=== PATIENT | female | born 1970 ===

== ENCOUNTER 2023-09-08 06:28 | Emergency (ER) | payer OTHER, SELFPAY ==
[2023-09-08 06:32] VITALS: BP 151/96
[2023-09-08] MEDS: BENADRYL 25 MG IV (07:10)
[2023-09-08] MEDS: TORADOL 15 MG IV (07:11)
--- NOTE | 2023-09-08 08:36 | ED.GENMED ---
History of Present Illness
General
Chief Complaint: Headache
Source: patient, records and spouse
Exam Limitations: none
Time Seen by Provider: 09/08/23 06:50
Nursing documentation reviewed up to this point in time: agreed with
Travel History
Have you had any contact with someone who has COVID-19?: No
Do you have any symptoms of coronavirus? Fever > 100 degrees, chills, cough, shortness of breath, sore throat, loss of taste or smell, muscle aches, or headache?: No
History of Present Illness
History of Present Illness:
Patient is a 53-year-old female presents to the emergency department with gaze and head turning to the left after having an onset of migraine while at work earlier. Patient had taken the Compazine yesterday approximately 24 hours ago. Patient has
had this happen before. Patient admits to nausea but denies headache or neck pain. Patient denies any recent illnesses or injuries. Patient denies visual or speech difficulties. Patient denies any focal weakness or ataxia.
Past History
Past History
ED Past Medical History: Other (Migraines)
ED Past Surgical History: Orthopedic
Social History
Tobacco: Non-smoker
Review of Systems
Review of Systems
All Other Systems: Not applicable
Phy Exam
Physical Exam
Physical Exam:
Physical Exam
General: mild to moderate distress, alert and appropriate, well nourished, well hydrated
HENT: Normocephalic, supple with no lymphadenopathy, no thyromegaly. Head and gaze deviated to the left
Eyes: Clear sclera, conjuctiva without injection
Heart: Regular rhythm and rate. No S3, S4. No murmur. No NVD, bruit
Lungs: No respiratory distress, no stridor, lung sounds clear and equal bilaterally
Abdomen: Soft, nontender, no organomegaly, no CVA tenderness, BS good
Neuro: Alert and oriented x 3, CN II - XII intact, no motor focality, no cerebellar dysfunction
Skin: no rash
Psychiatric: well kept. interactive and cooperative
Extremities: No edema, cyanosis, tenderness, Good and equal peripheral pulses.
Scores
Heart Failure Risk
Heart Failure Risk Score: Not Applicable
Heart Score for Chest Pain Patients
STEMI patient?: Not applicable
Withdrawal Assessment of Alcohol
Withdrawal Assessment Completed?: Not applicable
Course
Orders/Labs/Results
Orders:
Orders
09/08/23 06:56
Diphenhydramine [Benadryl] 25 mg IV NOW STA
Ketorolac [Toradol] 15 mg IV NOW STA
09/08/23 07:28
Benztropine Mesylate [Cogentin] 1 mg IM NOW STA
Vital Signs
Initial and Last Documented VS:
Initial Vital Signs
Temp Pulse Resp BP Pulse Ox
98.2 F 104 16 151/96 100
09/08/23 06:32 09/08/23 06:32 09/08/23 06:32 09/08/23 06:32 09/08/23 06:32
Last Documented Vital Signs
Temp Pulse Resp BP Pulse Ox
98.2 F 104 16 151/96 100
09/08/23 06:32 09/08/23 06:32 09/08/23 06:32 09/08/23 06:32 09/08/23 06:32
*Radiology
Radiology exam reviewed: other (na)
*Pulse Oximetry
Patient hypoxic: no
*EKG
Interpreted by ED Provider?: NA
*Director Imaging Interpretation
Rate: Director Imaging- N/A
*Critical Care Note
Total Time (30-74mins, 75-104mins- exclusive of procedures): Not Applicable
Update Note
Update Note:
Patient feeling much better. Believe this is a dystonic reaction due to the Compazine that she used yesterday. Patient did not require the Cogentin. Patient will be discharged and referred to neurology for follow-up.
ED Attending Note
-
Portions of this chart may have been created with voice recognition software.� Occasional wrong word or��sound alike� substitutions may have occurred due to the inherent limitations of voice recognition software.
Discharge Plan
Departure
Patient Disposition: Home (Routine Discharge)
Date of Disposition: 09/08/23
Time of Disposition: 08:39
Patient with high blood pressure during this ER visit?: Yes
Condition: Good
Covid-19: Not Applicable
Discharge Problem:
Acute dystonia due to drugs
Instructions: Dystonia, Migraines (DC), BLOOD PRESSURE
Prescriptions:
No Action
fentanyl 75 mcg/hr Patch 72 Hour
1 patch TRANSDERMAL Q72H
Excedrin Migraine 250-250-65 mg Tablet
2 tab PO Q6H PRN (Reason: migraines)
tramadol 100 mg Tablet
100 mg PO BID
Referrals:
Baldo Javier MD [Active] - Call in 1-3 days for appt
Yolie Peralta DO [Family Provider] - Follow up in 5-7 days
Interventions
Interventions:
*Risk Screen - Suicide Last Done: 09/08/23 06:32
*Neglect/Abuse Screening Last Done: 09/08/23 06:32
*ED COVID-19 Vaccine History Last Done: 09/08/23 06:32
Discharge Date and Time
Print Language: MALAY
== END 2023-09-08 09:07 | disposition home or self-care (01) ==
LOC: EMR 06:28
PROVIDERS: EMERGENCY PHYSICIAN Emergency Medicine; FAMILY PHYSICIAN Student in an Organized Health Care Education/Training Program
DX: G24.02 Drug induced acute dystonia (principal); G43.909 Migraine, unspecified, not intractable, without status migrainosus; R11.0 Nausea; R03.0 Elevated blood-pressure reading, without diagnosis of hypertension; Z88.8 Allergy status to other drugs, medicaments and biological substances
CPT/HCPCS: 99284; 96374; 96375; J0515